=== PATIENT | male | born 1965 | race Caucasian/White ===

== ENCOUNTER 2017-12-06 01:53 | Emergency (ER) | payer SELFPAY ==
[2017-12-06] MEDS ORDERED: oxyCODONE/Acetamin 5/325 MG* TAB PO ONE (02:57)
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
[2017-12-06 04:21] VITALS: BP 121/79
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
== END 2017-12-06 04:15 | disposition home or self-care (01) ==
LOC: ED 01:53
DX: S00.83XA Contusion of other part of head, initial encounter (principal); M25.511 Pain in right shoulder; S01.319A Laceration without foreign body of unspecified ear, initial encounter; S10.93XA Contusion of unspecified part of neck, initial encounter; Y04.2XXA Assault by strike against or bumped into by another person, initial encounter; Y93.89 Activity, other specified; Y92.29 Other specified public building as the place of occurrence of the external cause
CPT/HCPCS: 99282; A9270-GY

== ENCOUNTER 2019-06-11 11:12 | Emergency (ER) | payer OTHER ==
[2019-06-11] MEDS ORDERED: oxyCODONE/Acetamin 5/325 MG* TAB PO ONE (13:09)
[2019-06-11] MEDS ORDERED: Ketorolac *IM* INJ* 60 MG/2 ML VIAL IM ONE (13:09)
[2019-06-11] MEDS ORDERED: Lidocaine PATCH 5%* 1 PATCH TRANSDERM ONE (13:09)
--- NOTE | 2019-06-11 13:13 | ED ---
Back Pain - HPI Summary HPI Summary: This patient is a 54 year old male presenting to [facility] with a chief complaint of back injury since yesterday. He states he was lifting a bath tub with two other guys when he felt the pain in his lower back. He states the pain radiates to his left buttock. He reports numbness/tingling in his LLE radiating into his left buttock. He reports no Hx of IV drug use or narcotic dependency. He states he has not taken anything today for his pain. He states he had a previous traumatic back injury that felt the same as today, when lifting a car door (no car attached). He rates his pain 9/10 in severity. Pt denies any fever, chills, erythema of eyes, sore throat, CP, SOB, cough, abdominal pain, N/V, dysuria, hematuria, edema, rash, or dizziness. - History of Current Complaint Chief Complaint: EDBackInjuryPain Stated Complaint: BACK PAIN Time Seen by Provider: 06/11/19 13:02 Hx Obtained From: Patient Onset/Duration: Lasting Hours Onset/Duration: Started Hours Ago Pain Intensity: 9 Pain Scale Used: 0-10 Numeric - Allergies/Home Medications Allergies/Adverse Reactions: Allergies Allergy/AdvReac Type Severity Reaction Status Date / Time No Known Allergies Allergy Verified 06/11/19 11:16 PMH/Surg Hx/FS Hx/Imm Hx Endocrine/Hematology History: Denies: Hx Diabetes Sensory History: Denies: Hx Legally Blind, Hx Deafness Opthamlomology History: Denies: Hx Legally Blind - Surgical History Surgery Procedure, Year, and Place: appendectomy, right shoulder x 2- last in [facility] 09/2010 - Immunization History Date of Tetanus Vaccine: unk Date of Influenza Vaccine: none Infectious Disease History: No Infectious Disease History: Denies: Traveled Outside the [place] in Last 30 Days - Family History Known Family History: Negative: Cardiac Disease, Diabetes - Social History Alcohol Use: Rare Hx Substance Use: No Substance Use Type: Reports: None Hx Tobacco Use: No Smoking Status (MU): Never Smoked Tobacco Review of Systems Negative: Fever, Chills Negative: Erythema Negative: Sore Throat Negative: Chest Pain Negative: Shortness Of Breath, Cough Negative: Abdominal Pain, Vomiting, Nausea Negative: dysuria, hematuria Positive: Other - Back pain. Negative: Edema Neurological: Other - Neg: Dizziness Positive: Numbness All Other Systems Reviewed And Are Negative: No Physical Exam - Summary Physical Exam Summary: Constitutional: Well-developed, Well-nourished, Alert, Cooperative Skin: Warm, Dry HENT: Normocephalic; No Racoons eyes; No cardenas's sign; No abrasion; No contusion; No hemotympanum; No maxilla facial tenderness or instability; Dentition are smooth; No dental trauma; No trismus Eyes: EOM normal, PERRL Neck: Trachea is midline. No stridor; No JVD; No step off; No posterior cervical spine tenderness Cardio: Rhythm regular, rate normal Heart sounds normal; Intact distal pulses; The pedal pulses are 2+ and symmetric. Radial pulses are 2+ and symmetric. Pulmonary/Chest wall: Effort normal; Breath sounds normal; Equal chest rise; No flail segment; No rib tenderness; No sternal tenderness Abd: Soft, Appearance normal. No distension; No tenderness; No palpable pulsatile mass; No Cullens sign; No Lange-Turners sign Musculoskeletal: Full ROM and no tenderness at hips, ankles, shoulders, elbows and knees; No joint swelling; No step off or deformity of the spine; Pelvis is stable to lateral compression and rock. Sciatic notch tenderness. He has limited left hip flexion secondary to back pain. He has a positive straight leg raise as well as positive cross straight leg raise. Neuro: Alert, Oriented x3, Strength 5/5 all extremities. : No blood at urethral meatus Psych: Mood and affect Normal Triage Information Reviewed: Yes Vital Signs On Initial Exam: Initial Vitals Temp Pulse Resp BP Pulse Ox 97.4 F 93 16 156/106 99 06/11/19 11:13 06/11/19 11:13 06/11/19 11:13 06/11/19 11:13 06/11/19 11:13 Vital Signs Reviewed: Yes Procedures - Sedation Patient Received Moderate/Deep Sedation with Procedure: No Diagnostics - Vital Signs Vital Signs Temp Pulse Resp BP Pulse Ox 06/11/19 11:13 97.4 F 93 16 156/106 99 - Laboratory Lab Statement: Any lab studies that have been ordered have been reviewed, and results considered in the medical decision making process. Re-Evaluation - Re-Evaluation First Eval Re-Evaluation Time: 14:07 Change: Improved Comment: He has had some improvement in symptoms but still has no interest in moving. Back Pain Course/Dx - Course Course Of Treatment: This patient is a 54 year old male presenting to [facility] with a chief complaint of back injury since yesterday. Physical exam reveals Sciatic notch tenderness. He has limited left hip flexion secondary to back pain. He has a positive straight leg raise as well as positive cross straight leg raise. A plan for management and discharge were discussed with the patient and he was agreeable with this plan. No signs or symptoms of cauda equina or epidural abscess - Diagnoses Provider Diagnoses: Sciatica Discharge ED - Sign-Out/Discharge Documenting (check all that apply): Patient Departure - Discharge - Discharge Plan Condition: Stable Disposition: HOME Prescriptions: Lidocaine PATCH 5%* [Lidoderm 5% Patch*] 1 patch TRANSDERM DAILY #14 patch Naproxen TAB* [Naprosyn 250 mg TAB*] 500 mg PO Q8H PRN #20 tab PRN Reason: Pain - Severe oxyCODONE/Acetamin 5/325 MG* [Percocet 5/325 TAB*] 1 tab PO Q6H PRN #15 tab MDD 4 PRN Reason: Pain - Severe predniSONE 50 mg TAB [Deltasone 50 mg TAB] 50 mg PO DAILY #4 tab Patient Education Materials: Sciatica (ED) Forms: *Work Release Referrals: Adama Simpson MD [Primary Care Provider] - 3 Days Additional Instructions: Follow up with your Primary Care Provider in 2-3 days. Return to ED with new or worsening symptoms. - Billing Disposition and Condition Condition: STABLE Disposition: Home - Attestation Statements Document Initiated by Miki: Yes Documenting Scribe: Thuan Dowd Provider For Whom Miki is Documenting (Include Credential): Aden Edwards MD Scribe Attestation: Thuan Freire scribed for Aden Edwards MD on 06/15/19 at 1056. Scribe Documentation Reviewed: Yes Provider Attestation: The documentation as recorded by the Thuan barnes accurately reflects the service I personally performed and the decisions made by me, Aden Edwards MD Status of Scribe Document: Viewed
[2019-06-11 15:27] VITALS: BP 103/60
[2019-06-11] MEDS ORDERED: Lidocaine Patch REMOVE* 1 NOTE MISC SCH (21:00)
== END 2019-06-11 15:26 | disposition home or self-care (01) ==
LOC: ED 11:12
DX: M54.30 Sciatica, unspecified side (principal); Z90.89 Acquired absence of other organs
CPT/HCPCS: 96372; 99282; A9270-GY; J1885; J7512

== ENCOUNTER 2019-12-09 14:33 | Inpatient (IN) ==
[2019-12-09] MEDS ORDERED: Ondansetron 4 mg VIAL 2 MG/ML 2 ml VIAL IV ONE (16:58)
[2019-12-09] MEDS ORDERED: Morphine 4 MG/ML VIAL (1 ml) IV ONE ×2 (16:58→19:53)
[2019-12-09] MEDS ORDERED: NS 0.9% 1000 ml BAG 1,000 ML IV ONE (16:58)
[2019-12-09 17:39] LABS: ABS Eosinophils 0.1 10^3/ul (0-0.6); ABS Monocytes 0.4 10^3/ul (0-0.8); ABS Neutrophils 2.5 10^3/ul (1.5-7.7); Eosinophil % 2.3 %; Hematocrit 41 % (42-52); Hemoglobin 14.1 g/dL (14.0-18.0); Lymphocyte % 24.3 %; Mean Corpuscular HGB Conc 35 g/dL (31-36); Mean Corpuscular Hemoglobin 31 pg (27-31); Mean Corpuscular Volume 89 fL (80-94); Mean Platelet Volume 7.4 fL (7.4-10.4); Platelet Count 203 10^3/uL (150-450); Red Blood Count 4.61 10^6 /uL (4.18-5.48); Red Cell Distribution Width 13 % (10-15)
[2019-12-09 17:52] LABS: Albumin 4.5 g/dL (3.2-5.2); Albumin/Globulin Ratio 1.7 (1-3); BUN/Creatinine Ratio 4.8 (8-20); Calcium 9.3 mg/dL (8.6-10.3); EGFR African American 90.4 (>60); EGFR Non-African American 74.7 (>60); Globulin 2.6 g/dL (2-4); Potassium 3.5 mmol/L (3.5-5.0); Total Bilirubin 0.5 mg/dL (0.2-1.0); Total Protein 7.1 g/dL (6.4-8.9)
[2019-12-09] MEDS ORDERED: Iohexol 300 (CONTRAST) 10 ML SDV IV ONE (18:48)
[2019-12-09 18:51] LABS: C Reactive Protein 2.14 mg/L (<8.01)
[2019-12-09] MEDS ORDERED: NS 0.9% 1000 ml BAG 1,000 ML IV SCH ×2 (20:00→20:30)
[2019-12-09] MEDS ORDERED: Ondansetron 4 mg VIAL 2 MG/ML 2 ml VIAL IV PRN (20:29)
[2019-12-09] MEDS ORDERED: Piperacillin/Tazobac ADVAN 3.375 GM in NS 0.9% 100 ml BAG 100 ML IVPB ONE (20:29)
[2019-12-09] MEDS ORDERED: Zosyn per Pharmacy NOTE FOLLOW UP SCH (21:00)
[2019-12-09] MEDS ORDERED: Morphine 2 MG/ML SYRINGE IV PRN (22:00)
[2019-12-10] MEDS: ZOSYN 3.375 GM Q8H per EXTENDED INFUSION IV SCH ×3 (00:47→16:53)
[2019-12-10 05:25] LABS: ABS Eosinophils 0.1 10^3/ul (0-0.6); ABS Lymphocytes 1.1 10^3/ul (1.0-4.8); ABS Monocytes 0.4 10^3/ul (0-0.8); ABS Neutrophils 2.7 10^3/ul (1.5-7.7); Eosinophil % 1.9 %; Hematocrit 38 % (42-52); Hemoglobin 12.8 g/dL (14.0-18.0); Lymphocyte % 24.6 %; Mean Corpuscular HGB Conc 34 g/dL (31-36); Mean Corpuscular Hemoglobin 30 pg (27-31); Mean Corpuscular Volume 89 fL (80-94); Mean Platelet Volume 7.1 fL (7.4-10.4); Platelet Count 174 10^3/uL (150-450); Red Blood Count 4.24 10^6 /uL (4.18-5.48); Red Cell Distribution Width 13 % (10-15); White Blood Count 4.3 10^3/uL (3.5-10.8)
[2019-12-10 05:28] LABS: Albumin 3.6 g/dL (3.2-5.2); Albumin/Globulin Ratio 1.7 (1-3); BUN/Creatinine Ratio 3.4 (8-20); C Reactive Protein 1.55 mg/L (<8.01); Calcium 8.1 mg/dL (8.6-10.3); EGFR African American 78.1 (>60); EGFR Non-African American 64.6 (>60); Globulin 2.1 g/dL (2-4); Indirect Bilirubin 0.4 mg/dL (0.3-1.0); Potassium 3.5 mmol/L (3.5-5.0); Total Bilirubin 0.5 mg/dL (0.2-1.0); Total Protein 5.7 g/dL (6.4-8.9)
[2019-12-10 06:30] LABS: Erythrocyte Sed Rate 3 mm/Hr (0-19)
[2019-12-11] MEDS: ZOSYN 3.375 GM Q8H per EXTENDED INFUSION IV SCH ×2 (00:35→08:11)
[2019-12-11 04:45] LABS: ABS Eosinophils 0.1 10^3/ul (0-0.6); ABS Lymphocytes 1.1 10^3/ul (1.0-4.8); ABS Monocytes 0.4 10^3/ul (0-0.8); ABS Neutrophils 3.2 10^3/ul (1.5-7.7); Eosinophil % 1.6 %; Hematocrit 38 % (42-52); Hemoglobin 13.2 g/dL (14.0-18.0); Lymphocyte % 23.2 %; Mean Corpuscular HGB Conc 35 g/dL (31-36); Mean Corpuscular Hemoglobin 31 pg (27-31); Mean Corpuscular Volume 89 fL (80-94); Mean Platelet Volume 7.1 fL (7.4-10.4); Platelet Count 172 10^3/uL (150-450); Red Blood Count 4.29 10^6 /uL (4.18-5.48); Red Cell Distribution Width 13 % (10-15); White Blood Count 4.9 10^3/uL (3.5-10.8)
[2019-12-11 05:00] LABS: BUN/Creatinine Ratio 3.7 (8-20); Calcium 8.7 mg/dL (8.6-10.3); EGFR African American 85.6 (>60); EGFR Non-African American 70.8 (>60); Potassium 3.6 mmol/L (3.5-5.0)
[2019-12-11 12:02] VITALS: BP 106/60
== END 2019-12-11 14:15 | disposition home or self-care (01) | DRG 244 ==
LOC: SSU 14:33 → ED 14:33 → SSU 21:34
PROVIDERS: ADMIT Internal Medicine; ATTEND Internal Medicine